=== PATIENT | male | born 1965 | race Two or more races ===

== ENCOUNTER 2023-05-30 09:16 | Inpatient (IN) | payer OTHER ==
[~2023-05-30] VITALS: Ht 162.6 cm; Wt 59.0 kg
[2023-05-31] MEDS ORDERED: ENALAPRIL MALEAT5 MG PO (10:43)
[2023-05-31] MEDS ORDERED: FLECAINIDE ACE100 MG PO (10:44)
[2023-06-05] MEDS ORDERED: OMEPRAZOLE20 MG (08:43)
[2023-06-05 18:03] LABS: HEMATOCRIT 44.5 % (39.0-48.0); HEMOGLOBIN 14.4 g/dL (13-16.00); MEAN CORPUSCULAR HEMOGLOBIN 28.9 pg (27.00-32.0); MEAN CORPUSCULAR HGB CONC 32.4 g/dl (32.0-36.0); PLATELET COUNT 240 K/uL (150-450); RED CELL DISTRIBUTION WIDTH 14.2 % (11.5-14.5)
[2023-06-06 07:13] LABS: HEMATOCRIT 42.2 % (39.0-48.0); HEMOGLOBIN 13.5 g/dL (13-16.00); MEAN CELL VOLUME 88.8 fL (80.0-100.00); MEAN CORPUSCULAR HEMOGLOBIN 28.5 pg (27.00-32.0); PLATELET COUNT 209 K/uL (150-450); RED BLOOD COUNT 4.76 M/uL (4.00-6.00); RED CELL DISTRIBUTION WIDTH 14.3 % (11.5-14.5)
[2023-06-06 07:35] LABS: CALCIUM 8.9 mg/dL (8.5-10.1); CREATININE SERUM 0.96 mg/dL (0.70-1.30); GFR 80.73; MAGNESIUM 1.7 mg/dL (1.8-2.4); PHOSPHOROUS 2.7 mg/dL (2.5-4.9); POTASSIUM 4.23 mEq/L (3.5-5.1)
[2023-06-07 06:36] LABS: HEMATOCRIT 39.7 % (39.0-48.0); HEMOGLOBIN 13.3 g/dL (13-16.00); MEAN CELL VOLUME 87.6 fL (80.0-100.00); MEAN CORPUSCULAR HEMOGLOBIN 29.4 pg (27.00-32.0); MEAN CORPUSCULAR HGB CONC 33.5 g/dl (32.0-36.0); PLATELET COUNT 186 K/uL (150-450); RED BLOOD COUNT 4.53 M/uL (4.00-6.00); RED CELL DISTRIBUTION WIDTH 14.2 % (11.5-14.5)
[2023-06-07 07:22] LABS: CALCIUM 9.3 mg/dL (8.5-10.1); CREATININE SERUM 0.76 mg/dL (0.70-1.30); GFR 105.71; MAGNESIUM 2.4 mg/dL (1.8-2.4); POTASSIUM 4.84 mEq/L (3.5-5.1)
[2023-06-07 08:20] LABS: PHOSPHOROUS 1.9 mg/dL (2.5-4.9)
[2023-06-08 09:21] LABS: HEMATOCRIT 39.8 % (39.0-48.0); MEAN CELL VOLUME 88.2 fL (80.0-100.00); MEAN CORPUSCULAR HEMOGLOBIN 28.8 pg (27.00-32.0); MEAN CORPUSCULAR HGB CONC 32.7 g/dl (32.0-36.0); PLATELET COUNT 195 K/uL (150-450); RED BLOOD COUNT 4.51 M/uL (4.00-6.00); RED CELL DISTRIBUTION WIDTH 13.9 % (11.5-14.5)
[2023-06-08 10:36] LABS: CALCIUM 9.6 mg/dL (8.5-10.1); CREATININE SERUM 0.71 mg/dL (0.70-1.30); GFR 114.35; MAGNESIUM 2.3 mg/dL (1.8-2.4); POTASSIUM 4.09 mEq/L (3.5-5.1); T4 TOTAL 10.02 UG/DL (4.5-12.1); TSH 0.514 uIU/mL (0.358-3.74)
[2023-06-09 08:59] LABS: HEMATOCRIT 37.3 % (39.0-48.0); HEMOGLOBIN 12.2 g/dL (13-16.00); MEAN CELL VOLUME 87.7 fL (80.0-100.00); MEAN CORPUSCULAR HEMOGLOBIN 28.8 pg (27.00-32.0); MEAN CORPUSCULAR HGB CONC 32.9 g/dl (32.0-36.0); PLATELET COUNT 241 K/uL (150-450); RED BLOOD COUNT 4.25 M/uL (4.00-6.00); RED CELL DISTRIBUTION WIDTH 13.8 % (11.5-14.5)
[2023-06-09 09:32] LABS: CALCIUM 9.3 mg/dL (8.5-10.1); CREATININE SERUM 0.57 mg/dL (0.70-1.30); GFR 147.34; MAGNESIUM 2.3 mg/dL (1.8-2.4); POTASSIUM 4.02 mEq/L (3.5-5.1)
[2023-06-09 09:35] LABS: PHOSPHOROUS 1.8 mg/dL (2.5-4.9)
[2023-06-11 06:53] LABS: HEMATOCRIT 33.4 % (39.0-48.0); HEMOGLOBIN 11.3 g/dL (13-16.00); MEAN CELL VOLUME 85.6 fL (80.0-100.00); MEAN CORPUSCULAR HGB CONC 33.9 g/dl (32.0-36.0)
[2023-06-11 07:31] LABS: ALBUMIN 2.5 gm/dL (3.4-5.0); CALCIUM 8.3 mg/dL (8.5-10.1); CREATININE SERUM 0.57 mg/dL (0.70-1.30); GFR 147.34; PHOSPHOROUS 2.2 mg/dL (2.5-4.9); POTASSIUM 3.4 mEq/L (3.5-5.1)
[2023-06-11 07:35] LABS: PLATELET COUNT 299 K/uL (150-450)
[2023-06-11 08:49] LABS: PLATELET ESTIMATE NORMAL (NORMAL)
[2023-06-12 07:38] LABS: HEMATOCRIT 35.8 % (39.0-48.0); HEMOGLOBIN 11.6 g/dL (13-16.00); MEAN CELL VOLUME 87.3 fL (80.0-100.00); MEAN CORPUSCULAR HEMOGLOBIN 28.3 pg (27.00-32.0); MEAN CORPUSCULAR HGB CONC 32.4 g/dl (32.0-36.0); PLATELET COUNT 377 K/uL (150-450); RED CELL DISTRIBUTION WIDTH 14.1 % (11.5-14.5)
[2023-06-12 07:51] LABS: CREATININE SERUM 0.63 mg/dL (0.70-1.30); GFR 131.27; MAGNESIUM 2.1 mg/dL (1.8-2.4); PHOSPHOROUS 2.7 mg/dL (2.5-4.9); POTASSIUM 3.84 mEq/L (3.5-5.1)
[2023-06-14 08:20] LABS: HEMATOCRIT 36.3 % (39.0-48.0); HEMOGLOBIN 11.8 g/dL (13-16.00); MEAN CELL VOLUME 87.9 fL (80.0-100.00); MEAN CORPUSCULAR HEMOGLOBIN 28.5 pg (27.00-32.0); MEAN CORPUSCULAR HGB CONC 32.4 g/dl (32.0-36.0); PLATELET COUNT 533 K/uL (150-450); RED BLOOD COUNT 4.13 M/uL (4.00-6.00); RED CELL DISTRIBUTION WIDTH 14.3 % (11.5-14.5)
[2023-06-14 08:25] LABS: CALCIUM 9.2 mg/dL (8.5-10.1); CREATININE SERUM 0.83 mg/dL (0.70-1.30); GFR 95.49; MAGNESIUM 2.3 mg/dL (1.8-2.4); POTASSIUM 4.51 mEq/L (3.5-5.1)
[2023-06-18 07:52] LABS: HEMATOCRIT 33.7 % (39.0-48.0); HEMOGLOBIN 11.1 g/dL (13-16.00); MEAN CELL VOLUME 88.3 fL (80.0-100.00); MEAN CORPUSCULAR HGB CONC 32.9 g/dl (32.0-36.0); PLATELET COUNT 662 K/uL (150-450); RED BLOOD COUNT 3.81 M/uL (4.00-6.00); RED CELL DISTRIBUTION WIDTH 14.7 % (11.5-14.5)
[2023-06-18 07:57] LABS: ERYTHROCYTE SEDIMENTATION RATE 76 mm/hr
[2023-06-18 08:11] LABS: ALBUMIN 2.7 gm/dL (3.4-5.0); BILIRUBIN TOTAL 1.01 mg/dL (0.3-1.2); CALCIUM 9.5 mg/dL (8.5-10.1); CREATININE SERUM 1.35 mg/dL (0.70-1.30); GFR 54.47; GLOBULINA 3.2 G/DL (2.4-3.5); POTASSIUM 4.16 mEq/L (3.5-5.1); TOTAL PROTEIN 5.9 gm/dL (6.4-8.2)
[2023-06-18 08:15] LABS: C-REACTIVE PROTEIN 2.97 MG/DL (0.00-0.29)
[2023-06-19 07:43] LABS: HEMATOCRIT 35.2 % (39.0-48.0); MEAN CELL VOLUME 88.6 fL (80.0-100.00); MEAN CORPUSCULAR HEMOGLOBIN 28.7 pg (27.00-32.0); MEAN CORPUSCULAR HGB CONC 32.5 g/dl (32.0-36.0); PLATELET COUNT 706 K/uL (150-450); RED BLOOD COUNT 3.97 M/uL (4.00-6.00); RED CELL DISTRIBUTION WIDTH 14.4 % (11.5-14.5)
[2023-06-19 07:45] LABS: HEMOGLOBIN 11.4 g/dL (13-16.00)
[2023-06-19 08:09] LABS: CALCIUM 9.6 mg/dL (8.5-10.1); CREATININE SERUM 1.3 mg/dL (0.70-1.30); GFR 56.9; MAGNESIUM 2.4 mg/dL (1.8-2.4); PHOSPHOROUS 3.2 mg/dL (2.5-4.9); POTASSIUM 4.46 mEq/L (3.5-5.1)
[2023-06-19 14:34] LABS: PH,URINE 6.5 (5.0-8.0); URINE APPEARANCE Clear; URINE BILIRRUBIN Negative (NEGATIVE); URINE BLOOD Negative; URINE COLOR Yellow; URINE GLUCOSE Negative (NEGATIVE); URINE LEUKOCYTE Negative; URINE NITRATE Negative; URINE PROTEIN Trace (NEGATIVE); URINE UROBILINOGEN 0.2 E.U./dl
[2023-06-19 14:38] LABS: URINE BACTERIA 12.5 uL (0.0-1933); URINE EPITHELIAL CELLS 5.5 uL (0.0-38.8); URINE RBC 4.1 uL (0.0-20.8); URINE WBC 16.8 uL (0.0-23.2)
[2023-06-20 08:13] LABS: HEMATOCRIT 34.8 % (39.0-48.0); HEMOGLOBIN 11.3 g/dL (13-16.00); MEAN CELL VOLUME 88.4 fL (80.0-100.00); MEAN CORPUSCULAR HEMOGLOBIN 28.7 pg (27.00-32.0); MEAN CORPUSCULAR HGB CONC 32.5 g/dl (32.0-36.0); PLATELET COUNT 736 K/uL (150-450); RED BLOOD COUNT 3.93 M/uL (4.00-6.00); RED CELL DISTRIBUTION WIDTH 14.6 % (11.5-14.5)
[2023-06-20 09:05] LABS: CALCIUM 9.3 mg/dL (8.5-10.1); CREATININE SERUM 1.12 mg/dL (0.70-1.30); GFR 67.58; MAGNESIUM 2.4 mg/dL (1.8-2.4); PHOSPHOROUS 3.4 mg/dL (2.5-4.9); POTASSIUM 4.42 mEq/L (3.5-5.1)
== END 2023-06-20 14:57 | disposition home or self-care (01) | DRG 329 ==
LOC: SURH 06-05 05:53 → O/R 06-05 05:53 → SURH 06-05 09:15
PROVIDERS: Internal Medicine; Internal Medicine Geriatric Medicine; Internal Medicine Infectious Disease; Surgery; ADMIT Colon & Rectal Surgery; ATTEND Colon & Rectal Surgery
PROC: 0DBP4ZZ Excision of Rectum, Percutaneous Endoscopic Approach (ICD-10-PCS; 2023-06-05)
PROC: 07BB4ZZ Excision of Mesenteric Lymphatic, Percutaneous Endoscopic Approach (ICD-10-PCS; 2023-06-05)
PROC: 0DBL4ZZ Excision of Transverse Colon, Percutaneous Endoscopic Approach (ICD-10-PCS; 2023-06-05)
PROC: 0DJD8ZZ Inspection of Lower Intestinal Tract, Via Natural or Artificial Opening Endoscopic (ICD-10-PCS; 2023-06-05)
PROC: 0DTN4ZZ Resection of Sigmoid Colon, Percutaneous Endoscopic Approach (ICD-10-PCS; principal; 2023-06-05 15:00)
PROC: 4A12X4Z Monitoring of Cardiac Electrical Activity, External Approach (ICD-10-PCS; 2023-06-06)
PROC: B24BZZZ Ultrasonography of Heart with Aorta (ICD-10-PCS; 2023-06-08)
PROC: BW21YZZ Computerized Tomography (CT Scan) of Abdomen and Pelvis using Other Contrast (ICD-10-PCS; 2023-06-11)
PROC: 0W9G30Z Drainage of Peritoneal Cavity with Drainage Device, Percutaneous Approach (ICD-10-PCS; 2023-06-13)
DX: C18.3 Malignant neoplasm of hepatic flexure (principal); K68.2 Retroperitoneal fibrosis; I48.92 Unspecified atrial flutter; K92.1 Melena; K68.11 Postprocedural retroperitoneal abscess; N17.9 Acute kidney failure, unspecified; I48.0 Paroxysmal atrial fibrillation; I11.9 Hypertensive heart disease without heart failure; B95.2 Enterococcus as the cause of diseases classified elsewhere

== ENCOUNTER 2023-07-11 05:50 | Day surgery (SDC) | payer OTHER ==
[~2023-07-11 05:50] MED LIST: ENALAPRIL MALEAT5 MG PO; FLECAINIDE ACE100 MG PO; OMEPRAZOLE20 MG
== END 2023-07-11 11:55 | disposition home or self-care (01) ==
LOC: CIR.AMB 05:50
PROVIDERS: ATTEND Colon & Rectal Surgery
DX: C18.3 Malignant neoplasm of hepatic flexure (principal); K92.1 Melena; I10 Essential (primary) hypertension; Z20.822 Contact with and (suspected) exposure to COVID-19